=== PATIENT | male | born 1985 | race Caucasian/White ===

== ENCOUNTER 2021-06-16 13:18 | Outpatient (CLI) | payer OTHER, SELFPAY ==
--- NOTE | 2021-06-16 13:30 | MR_ITS ---
WS: [id number] MRI LEFT SHOULDER ARTHROGRAM HISTORY: S46.912A - Strain of unspecified muscle, fascia and tendo... COMPARISON: None available. TECHNIQUE: Pre and postcontrast imaging. Gadolinium mixture was injected under fluoroscopy. Coronal T 1 fat sat, sagittal T2 fat sat, coronal T2 fat sat, axial proton density, axial T1 nonfat saturation views are submitted. Precontrast: No significant amount of fluid in the subacromial or subdeltoid bursa. Slight increased signal in the distal supraspinatus tendon. There is a small amount of increased fluid at the rotator cuff interval. Biceps tendon remains in normal position. No biceps tendon tear. A small amount of inc reased signal in the anterior labrum. Post contrast: The abnormal signal within the anterior labrum seen on the precontrast examination carrasco s not fill with contrast. There is no full-thickness rotator cuff tear. No muscle atrophy or edema. S mall osteophytes from the distal clavicle and acromion with mild encroachment upon the rotator cuff. No associated edema. Biceps tendon is in normal position. There is fraying and a small articular mendy face tear of the supraspinatus tendon. Tendon tear measures less than 5 mm. Small amount of contrast extends through rotator cuff interval which may be due to the injection. The middle glenohumeral liga ment is redundant. MR/MR shoulder LT wo/w con [id number] IMPRESSION: 1. No full-thickness rotator cuff tear. 2. There is a partial tear along the distal articular surface of the supraspin atus less than 5 mm. Associated fraying along the tendon surfaces also. 3. Small osteophytes from the AC joint with mild encroachment upon the rotator cuff. 4. Redundant middle glenohumeral ligament. 5. No biceps tendon tear. 6. Small amount of fraying along the anterior labrum but no tear identified.
--- NOTE | 2021-06-16 15:02 | IR_ITS ---
WS: [id number] LEFT SHOULDER ARTHROGRAM UNDER FLUOROSCOPY. PRIOR TO MRI EVALUATION. HISTORY: STRAIN OF UNSPECIFIED MUSCLE FASCIA AND TENDON COMPARISON: Shoulder radiograph 03/04/2021 FLUOROSCOPY TIME: 1.4 minutes. Procedure, risks and complications were explained to the patient. Consent has been obtained. Under fluoroscopic guidance the skin is marked over the medial superior third of the humeral head, cl eansed with ChloraPrep and anesthetized with lidocaine. 22-gauge spinal needle is inserted to the cor ike of the humeral head. Test injection with Omnipaque reveals the needle is appropriately positioned in the joint. A mixture of 10 cc sterile saline, 5 cc Omnipaque and 0.1 mmol gadolinium are injected under fluoroscopic guidance. Patient tolerated the joint distention well. No complications. Approximately 12 to 13 cc of gadolinium mixture injected with moderate resistance. No extravasation f rom the joint capsule is identified. IR/IR arthrogram shoulderLT [id number] IMPRESSION: Uncomplicated LEFT shoulder joint injection prior to MRI.
[2021-06-16] MEDS: iohexol 240 mg/mL 50 mL Btl INTRA-ARTI (16:53)
== END 2021-06-16 13:19 | disposition home or self-care (01) ==
LOC: RAD 13:27
PROVIDERS: PCP Emergency Medicine Emergency Medical Services; Visit Provider Orthopaedic Surgery
DX: S46.912A Strain of unspecified muscle, fascia and tendon at shoulder and upper arm level, left arm, initial encounter (principal); X58.XXXA Exposure to other specified factors, initial encounter; M75.102 Unspecified rotator cuff tear or rupture of left shoulder, not specified as traumatic; M25.712 Osteophyte, left shoulder
CPT/HCPCS: 23350; 73223; 77002

== ENCOUNTER → 2021-09-18 09:36 | Outpatient (BNVA) | payer OTHER, SELFPAY | PROVIDERS: PCP Emergency Medicine Emergency Medical Services; Referring Provider Emergency Medicine Emergency Medical Services; Visit Provider Anesthesiology Pain Medicine | DX: M51.16 Intervertebral disc disorders with radiculopathy, lumbar region (principal); M79.604 Pain in right leg; M79.605 Pain in left leg | CPT/HCPCS: 99204 ==

== ENCOUNTER → 2021-12-16 09:36 | Outpatient (BNVA) | payer OTHER, SELFPAY | PROVIDERS: PCP Emergency Medicine Emergency Medical Services; Visit Provider Anesthesiology Pain Medicine | DX: M79.604 Pain in right leg (principal); M79.605 Pain in left leg; M51.16 Intervertebral disc disorders with radiculopathy, lumbar region | CPT/HCPCS: 99213 ==

== ENCOUNTER → 2024-01-24 08:23 | Outpatient (BNVA) | payer OTHER, SELFPAY | PROVIDERS: PCP Emergency Medicine Emergency Medical Services; Referring Provider Emergency Medicine Emergency Medical Services; Visit Provider Psychiatry & Neurology Neurology | DX: R25.9 Unspecified abnormal involuntary movements (principal); R25.1 Tremor, unspecified; G43.911 Migraine, unspecified, intractable, with status migrainosus | CPT/HCPCS: 99203; 99204 ==

== ENCOUNTER → 2024-04-13 07:35 | Outpatient (BNVA) | payer OTHER, SELFPAY | PROVIDERS: PCP Emergency Medicine Emergency Medical Services; Visit Provider Psychiatry & Neurology Neurology | DX: R25.1 Tremor, unspecified (principal); R56.9 Unspecified convulsions; R25.9 Unspecified abnormal involuntary movements | CPT/HCPCS: 95816; 95819 ==

== ENCOUNTER → 2024-05-24 14:25 | Outpatient (BNVA) | payer OTHER, SELFPAY | PROVIDERS: PCP Emergency Medicine Emergency Medical Services; Visit Provider Psychiatry & Neurology Neurology | DX: R25.9 Unspecified abnormal involuntary movements (principal); G43.911 Migraine, unspecified, intractable, with status migrainosus | CPT/HCPCS: 36415; 82607; 82746; 83735; 83921; 84439; 84443; 84481; 85025; 99212 ==

== ENCOUNTER → 2024-08-03 09:01 | Outpatient (BNVA) | payer OTHER, SELFPAY | PROVIDERS: PCP Emergency Medicine Emergency Medical Services; Referring Provider Family Medicine; Visit Provider Internal Medicine | DX: E29.1 Testicular hypofunction (principal); R53.83 Other fatigue; R68.82 Decreased libido; Z12.5 Encounter for screening for malignant neoplasm of prostate; R25.9 Unspecified abnormal involuntary movements | CPT/HCPCS: 99204 ==

== ENCOUNTER 2024-08-07 07:22 | Outpatient (CLI) | payer OTHER, SELFPAY ==
[2024-08-07 08:34] LABS: Basophils # 0.1 10^3/uL (0.0-0.1); Basophils % 0.8 %; Eosinophils # 0.1 10^3/uL (0.0-0.8); Eosinophils % 2.3 %; Hematocrit 46.7 % (37-53); Lymphocytes # 1.8 10^3/uL (0.8-4.8); Lymphocytes % 29.8 %; Mean Corpuscular HGB Conc 32.8 g/dL (30-55); Mean Corpuscular Hemoglobin 28.4 pg (27-33); Mean Corpuscular Volume 86.6 fl (82-101); Mean Platelet Volume 10.6 fL (7.4-10.4); Monocytes # 0.5 10^3/uL (0.2-0.9); Monocytes % 8.1 %; Neutrophils # 3.55 10^3/uL (1.8-7.7); Neutrophils % 58.5 %; Nucleated Red Blood Cells % 0 %; Platelet Count 232 10^3/cmm (157-399); Red Blood Count 5.39 10^6/uL (3.85-5.65); White Blood Count 6.07 10^3/uL (3.29-11.43)
[2024-08-07 09:07] LABS: Alanine Aminotransferase 33 U/L (0-41); Albumin Level 4.5 g/dL (3.5-5.2); Alkaline Phosphatase 87 U/L (40-130); Aspartate Amino Transferase 18 U/L (0-40); Blood Urea Nitrogen 12 mg/dL (6-20); Calcium 9.4 mg/dL (8.5-10.5); Carbon Dioxide 26 mmol/L (22-29); Chloride 102 mmol/L (98-107); Chol HDL Ratio 6.03 mg/dL (1.0-5.00); Cholesterol 187 mg/dL (0-200); Globulin 3.3 g/dL (1.3-4.6); Glomerular Filtration Rate 84.1 mL/min (90-130); Glucose 102 mg/dL (65-115); HDL Cholesterol 31 mg/dL (60-100); LDL Cholesterol Calculated 81 mg/dL (50-129); LDL HDL Ratio 2.61 RATIO (0.00-3.22); Osmolality Calculated 284 mOsm/kg (285-295); Prostate Specific Antigen Scr 0.87 ng/mL (0-4); Sodium 137 mmol/L (136-145); Testosterone Total 250.8 ng/dL (249-836); Thyroid Stimulating Hormone 1.34 uIU/mL (0.27-4.20); Total Bilirubin 0.3 mg/dL (0.15-1.2); Total Protein 7.8 g/dL (6.6-8.7); Triglycerides 377 mg/dL (0-150)
[2024-08-07 09:33] LABS: Follicle Stimulating Hormone 3.6 mIU/mL (1.5-12.4); Luteinizing Hormone 4.7 mIU/mL (1.7-8.6); Prolactin 10.72 ng/mL (4.0-15.2)
== END 2024-08-07 07:23 | disposition home or self-care (01) ==
LOC: LAB 07:24
PROVIDERS: PCP Family Medicine; Visit Provider Internal Medicine
DX: E29.1 Testicular hypofunction (principal); R53.83 Other fatigue; R68.82 Decreased libido; Z12.5 Encounter for screening for malignant neoplasm of prostate; R25.9 Unspecified abnormal involuntary movements
CPT/HCPCS: 36415; 80053; 80061; 83001; 83002; 84146; 84403; 84439; 84443; 85025; G0103

== ENCOUNTER → 2024-08-18 08:14 | Outpatient (BNVA) | payer OTHER, SELFPAY | PROVIDERS: PCP Family Medicine; Visit Provider Internal Medicine | DX: E29.1 Testicular hypofunction (principal); E78.5 Hyperlipidemia, unspecified; R68.82 Decreased libido; R53.83 Other fatigue | CPT/HCPCS: 84403 ==

== ENCOUNTER → 2025-01-03 14:43 | Outpatient (BNVA) | payer OTHER, SELFPAY | PROVIDERS: PCP Family Medicine; Visit Provider Specialist | DX: G43.711 Chronic migraine without aura, intractable, with status migrainosus (principal) | CPT/HCPCS: 99214 ==

== ENCOUNTER → 2025-01-12 09:46 | Outpatient (BNVA) | payer OTHER, SELFPAY | PROVIDERS: PCP Family Medicine; Visit Provider Internal Medicine | DX: E29.1 Testicular hypofunction (principal); R53.83 Other fatigue; R68.82 Decreased libido; R03.0 Elevated blood-pressure reading, without diagnosis of hypertension | CPT/HCPCS: 99214 ==

== ENCOUNTER 2025-01-13 07:29 | Outpatient (CLI) | payer OTHER, SELFPAY ==
[2025-01-13 07:42] LABS: Hematocrit 46.6 % (37-53); Hemoglobin 14.80 g/dL (11.27-16.99); Mean Corpuscular HGB Conc 31.8 g/dL (30-55); Mean Corpuscular Hemoglobin 26.9 pg (27-33); Mean Corpuscular Volume 84.7 fl (82-101); Nucleated Red Blood Cells % 0 %; Platelet Count 206 10^3/cmm (157-399); Red Blood Count 5.50 10^6/uL (3.85-5.65); White Blood Count 5.88 10^3/uL (3.29-11.43)
[2025-01-13 08:19] LABS: Alanine Aminotransferase 30 U/L (0-41); Albumin Level 4.4 g/dL (3.5-5.2); Alkaline Phosphatase 89 U/L (40-130); Anion Gap 14.3 (5-19); Aspartate Amino Transferase 18 U/L (0-40); Blood Urea Nitrogen 11 mg/dL (6-20); Calcium 9.3 mg/dL (8.5-10.5); Carbon Dioxide 26 mmol/L (22-29); Chloride 104 mmol/L (98-107); Cholesterol 201 mg/dL (0-200); Globulin 3.0 g/dL (1.3-4.6); Glucose 103 mg/dL (65-115); HDL Cholesterol 29 mg/dL (60-100); Osmolality Calculated 290 mOsm/kg (285-295); Potassium 4.3 mmol/L (3.5-5.1); Prostate Specific Antigen 0.743 ng/mL (0-4); Sodium 140 mmol/L (136-145); Total Protein 7.4 g/dL (6.6-8.7); Triglycerides 296 mg/dL (0-150)
== END 2025-01-13 07:30 | disposition home or self-care (01) ==
PROVIDERS: PCP Family Medicine; Visit Provider Internal Medicine
DX: E11.9 Type 2 diabetes mellitus without complications (principal); R53.83 Other fatigue; R68.82 Decreased libido; E78.5 Hyperlipidemia, unspecified; Z79.899 Other long term (current) drug therapy
CPT/HCPCS: 80053; 80061; 84153; 84403; 85025

== ENCOUNTER → 2025-03-09 08:16 | Outpatient (BNVA) | payer OTHER, SELFPAY | PROVIDERS: PCP Family Medicine; Visit Provider Nurse Practitioner | DX: S83.206A Unspecified tear of unspecified meniscus, current injury, right knee, initial encounter (principal); M23.51 Chronic instability of knee, right knee; X58.XXXA Exposure to other specified factors, initial encounter | CPT/HCPCS: 73560; 73565 ==

== ENCOUNTER 2025-03-09 09:20 | Outpatient (CLI) | payer OTHER, SELFPAY | END 2025-03-09 09:21 | disposition home or self-care (01) | LOC: SPT 09:20 | PROVIDERS: PCP Family Medicine; Visit Provider Nurse Practitioner | DX: Z46.89 Encounter for fitting and adjustment of other specified devices (principal); M25.561 Pain in right knee | CPT/HCPCS: 20610; J1100; J2795; J3301; J9999; L1812 ==

== ENCOUNTER → 2025-03-16 09:23 | Outpatient (BNVA) | payer OTHER, SELFPAY | PROVIDERS: PCP Family Medicine; Visit Provider Nurse Practitioner | DX: M19.012 Primary osteoarthritis, left shoulder (principal); S46.902A Unspecified injury of unspecified muscle, fascia and tendon at shoulder and upper arm level, left arm, initial encounter; X58.XXXA Exposure to other specified factors, initial encounter; M75.102 Unspecified rotator cuff tear or rupture of left shoulder, not specified as traumatic; R29.898 Other symptoms and signs involving the musculoskeletal system | CPT/HCPCS: 99214 ==

== ENCOUNTER → 2025-04-04 15:59 | Outpatient (BNVA) | payer OTHER, SELFPAY | PROVIDERS: PCP Family Medicine; Visit Provider Specialist | DX: G43.711 Chronic migraine without aura, intractable, with status migrainosus (principal); R03.0 Elevated blood-pressure reading, without diagnosis of hypertension | CPT/HCPCS: 99213 ==

== ENCOUNTER 2025-04-20 07:58 | Outpatient (CLI) | payer OTHER, SELFPAY ==
--- NOTE | 2025-04-20 08:14 | MR_ITS ---
WS: [id number] MRI LEFT SHOULDER NONCONTRAST TECHNIQUE: Sagittal T2, coronal T1, T2 and proton density imaging. Axial gradient PDE imaging. CLINICAL INFORMATION: left shoulder pain, ongoing. 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 Impingement on the supraspinatus. Tendinopathy supraspinatus and infraspinatus. Partial undersurface tear distal supraspinatus with T2 signal abnormality. No tendon retraction. Tear measures approximately 7 mm. Additional tiny tear at the supraspinatus insertion. Teres minor appears intact. Thickening of the axillary recess as well edema in the rotator interval. Moderate narrowing glenohumeral articulation advanced for patient this age. Stiff shoulder capsule upon contrast injection. Recommend correlation for adhesive capsulitis in the appropriate clinical setting. Biceps tendon is intact within the bicipital groove. Subscapularis tendon is intact. Intra-articular biceps tendon appears intact. Normal teres minor. Tear of the anterior glenoid labrum with superior and inferior extension. Biceps labral anchor appears intact. Middle glenohumeral ligament appears intact. Posterior labrum appears intact. MR/MR shoulder LT wo/w con [id number] IMPRESSION: 1. Tear of the anterior labrum extending superiorly and inferiorly. Biceps lab ral anchor appears intact. 2. Partial undersurface tear distal supraspinatus measuring 6 mm. No tendon re traction. Additional tiny tear of the supraspinatus insertion. 3. Tendinopathy supraspinatus. 4. Suspect adhesive capsulitis in the appropriate clinical setting. 5. Biceps tendon intact in the bicipital groove. Intra-articular biceps tendon appears intact.
--- NOTE | 2025-04-20 14:11 | IR_ITS ---
WS: [email or web address] SHOULDER ARTHROGRAM LEFT Fluoroscopic guided left shoulder arthrogram CLINICAL INFORMATION: Left shoulder pain PROCEDURE: The procedure including risks, benefits and complications were discussed with the patient, who agreed to proceed. Using sterile technique, the patient was prepped and draped in the usual sterile fashion. After 1% lidocaine injection using fluoroscopic guidance, a 22-gauge spinal needle was advanced into the glenohumeral joint. Approximately 13 ml of a solution containing 10 ml normal saline, 5 ml Omnipaque 240, 5 ml 1% lidocaine, and 0.1 ml gadolinium was administered. No immediate complications. FLUOROSCOPY TIME: 4min [id number] # of spot films: 4 IR/IR arthrogram shoulderLT [id number] IMPRESSION: Uncomplicated fluoroscopic-guided left shoulder arthrogram. MRI to follow.
== END 2025-04-20 07:59 | disposition home or self-care (01) ==
LOC: RAD 07:59
PROVIDERS: Visit Provider Nurse Practitioner
DX: M19.012 Primary osteoarthritis, left shoulder (principal); R29.898 Other symptoms and signs involving the musculoskeletal system; S46.812A Strain of other muscles, fascia and tendons at shoulder and upper arm level, left arm, initial encounter; X58.XXXA Exposure to other specified factors, initial encounter
CPT/HCPCS: 23350; 73223; 77002; A9577; J9999